=== PATIENT | female | born 1945 | race Caucasian/White ===

== ENCOUNTER 2017-11-26 06:27 | Inpatient (IN) | payer OTHER ==
[~2017-11-26] VITALS: Ht 165.1 cm; Wt 85.0 kg
[~2017-11-26 06:27] MED LIST: ALBUTEROL 3 ML3 ML INH; ATORVASTATIN CA20 M1 PO; ATORVASTATIN CA20 MG PO; CALCIUM 500 +1 EAC5 PO; HYDROCHLOROTHIA25 M1 PO; HYDRODIURIL 2525 MG PO; LOSARTAN POTASS25 M1 PO; METOPROLOL SUCC25 M1 PO; MOTRIN 400MG (400 MG PO; NORVASC 5MG TAB5 MG PO; NORVASC10 M1 PO; PERCOCET 325 MG1 TA2 PO; PREDNISONE 20MG20 MG PO; SPIRIVA RESPIMAT4 GM INH; SYMBICORT 16010.2 GM INH; SYMBICORT 80/4.1 PUF INH
--- NOTE | 2017-11-26 06:51 | ED GI/GU/ABDOMINAL COMPLAINT ---
History of Present Illness General Chief Complaint: Abdominal Pain/Flank Pain Stated Complaint: FLANK PAIN ? KIDNEY PAIN PER PT Source: patient, family Exam Limitations: no limitations Vital Signs & Intake/Output Vital Signs & Intake/Output Vital Signs Date Time Temp Pulse Resp B/P B/P Pulse O2 O2 Flow FiO2 Mean Ox Delivery Rate 11/26 1054 101.4 100 20 114/52 96 Room Air 11/26 1044 101.4 11/26 1037 101.4 18 96 Room Air 2.0L 11/26 1006 102.7 120 16 199/89 89 Room Air 11/26 0950 102.7 / 0849 98.5 86 20 167/72 95 Room Air 11/26 0642 98.6 82 18 136/66 95 Room Air Allergies Coded Allergies: milk (VOMIT 11/26/17) orange ("FACE AND MOUTH LOOK LIKE I HAVE THIRD DEGREE BENNETT" PER PT 05/04/17) Reconcile Medications Amlodipine Besylate (Norvasc) 10 MG TABLET 1 TAB PO DAILY BP (Reported) Atorvastatin Calcium 20 MG TABLET 1 TAB PO DAILY CHOLESTEROL (Reported) Budesonide/Formoterol Fumarate (Symbicort 160-4.5 Mcg Inhaler) 160 MCG-4.5 MCG/ ACTUATION HFA.AER.AD 2 PUF INH BID COPD (Reported) Calcium Carbonate/Vitamin D3 (Calcium 500 + D Tablet) (Unknown Strength) TABLET (Unknown Dose) PO DAILY SUPPLEMENT (Reported) Hydrochlorothiazide (Unknown Strength) TABLET (Unknown Dose) UNKNOWN ( Reported) Losartan Potassium 25 MG TABLET 1 TAB PO DAILY BP (Reported) Metoprolol Succinate 25 MG TAB 0.5 TAB PO DAILY HEART/BP (Reported) Tiotropium [place] (Spiriva Respimat) 2.5 MCG/ACTUATION MIST.INHAL 2 PUFF INH DAILY COPD (Reported) Triage Note: PT FROM HOME C/O RIGHT BACK/FLANK PAIN THAT BEGAN YESTERDAY AROUND 1600. PT STATES "I THINK SOMETHIGN IS WRONG WITH MY KIDNEY". PT STATES "URGE TO PEE A LOT" PT DENIES BURNING UPON URINATION. "PRESSURE" ON BLADDER. PT STATES HX OF UTI. PT STATES "THEY SAY I HAVE A KIDNEY STONE TOO I GUESS" PT STATES N/V X1. VSS. Triage Nurses Notes Reviewed? yes ? n Is pt currently ? No Onset: Gradual Duration: day(s): Timing: recent history Quality/Severity: cramping, sharpness, throbbing Location: right flank, right lower quadrant Radiation: RLQ Activities at Onset: none Prior Abdominal Problems: similar symptoms Modifying Factors: Worsens With: palpation. Associated Symptoms: abdominal pain, nausea/vomiting HPI: 72 yo woman h/o copd, h/o kidney stone presents with right flank and right lower quadrant abdominal pain since yesterday afternoon. "I fell the pain wrap around from the back to the front." Mild nausea previously, but now resolved. She shares that she is having difficulty urinating. Per , "She had something like this before... it was really painful, and she toughed it out at home, and then her symptoms got better." She notes no chest pain, shortness of breath, diarrhea, chills. (Lou MIDDLETON,Kale Carlson) Past History Travel History Traveled to [place] past 21 day No Medical History Any Pertinent Medical History? see below for history Neurological: NONE EENT: NONE Cardiovascular: hypertension Respiratory: COPD Gastrointestinal: NONE Hepatic: NONE Renal: NONE Musculoskeletal: NONE Psychiatric: NONE Endocrine: NONE Blood Disorders: NONE Cancer(s): NONE AIR TRAFFIC CONTROL OPERATOR/Reproductive: NONE Other Medical Hx: Rheumatic fever History of MRSA: No History of VRE: No History of CDIFF: No Surgical History Surgical History: cholecystectomy, tubal ligation Psychosocial History Who do you live with Significant Other What is your primary language Macedonian Tobacco Use: Quit >30 days ago Family History Family History, If Any: MOTHER Hx Contributory? No (Lou MIDDLETON,Kale Carlson) Review of Systems Review of Systems Constitutional: Reports: no symptoms. EENTM: Reports: no symptoms. Respiratory: Reports: no symptoms. Cardiovascular: Reports: no symptoms. GI: Reports: no symptoms. Genitourinary: Reports: no symptoms. Musculoskeletal: Reports: no symptoms. Skin: Reports: no symptoms. Neurological/Psychological: Reports: no symptoms. Hematologic/Endocrine: Reports: no symptoms. Immunologic/Allergic: Reports: no symptoms. All Other Systems: Reviewed and Negative (Lou MIDDLETON,Kale Carlson) Physical Exam Physical Exam General Appearance: well developed/nourished, mild distress Head: atraumatic, normal appearance Eyes: Bilateral: normal appearance. Ears, Nose, Throat, Mouth: hearing grossly normal, moist mucous membrane Neck: normal inspection, supple, full range of motion Respiratory: normal breath sounds, chest non-tender, no respiratory distress, quiet respiration, lungs clear Cardiovascular: regular rate/rhythm Gastrointestinal: normal bowel sounds, soft, mild rlq tenderness to palpation. Back: normal inspection, normal range of motion Extremities: normal range of motion Neurologic/Psych: no motor/sensory deficits, awake, alert, oriented x 3 Skin: intact, normal color, warm/dry Core Measures ACS in differential dx? No Sepsis Present: No Sepsis Focused Exam Completed? No (Lou MIDDLETON,Kale Carlson) Progress Differential Diagnosis: appendicitis, kidney stone, ovarian cyst, UTI/pyelo Plan of Care: Orders Procedure Date/time Status Regular Diet 11/27 L Active LACTIC ACID 11/26 1253 Active Patient Data 11/26 1053 Active OXYGEN SETUP (GEN) 11/26 1036 Active Saline Lock 11/26 1036 Active Admit to inpatient 11/26 1036 Active Vital Signs 11/26 1036 Active Activity/Ambulation 11/26 1036 Active Code Status 11/26 1036 Active EKG 11/26 1025 Active LACTIC ACID 11/26 0953 Complete BLOOD CULTURE 11/26 0942 Active Add-on Test (ER Only) 11/26 0857 Active LIPASE 11/26 0653 Complete HEPATIC FUNCTION PANEL 11/26 0653 Complete CBC WITHOUT DIFFERENTIAL 11/26 0653 Complete BASIC METABOLIC PANEL 11/26 0653 Complete AMYLASE 11/26 0653 Complete URINALYSIS 11/26 0638 Complete Laboratory Tests 11/26/17 1025: Lactic Acid 1.8 11/26/17 0710: Anion Gap 11, Estimated GFR 40 L, BUN/Creatinine Ratio 16.2, Glucose 124 H, Calcium 9.2, Total Bilirubin 1.1, Direct Bilirubin 0.3, AST 21, ALT 26, Alkaline Phosphatase 80, Total Protein 7.0, Albumin 3.9, Amylase 34, Lipase 73, CBC w Diff NO MAN DIFF REQ, RBC 4.99, MCV 80.0 L, MCH 26.2 L, MCHC 32.7 L, RDW 15.1 H, MPV 7.8, Gran % 89.0 H, Lymphocytes % 5.0 L, Monocytes % 5.7, Eosinophils % 0.2, Basophils % 0.1, Absolute Granulocytes 13.3 H, Absolute Lymphocytes 0.7 L, Absolute Monocytes 0.8 H, Absolute Eosinophils 0, Absolute Basophils 0 05/06/18 0643: Urine Color YEL, Urine Clarity HAZY H, Urine pH 6.0, Ur Specific [place] >= 1.030, Urine Protein TRACE H, Urine Ketones NEG, Urine Nitrite NEG, Urine Bilirubin NEG, Urine Urobilinogen 0.2, Ur Leukocyte Esterase MOD H, Ur Microscopic SEDIMENT EXAMINED, Urine RBC 1-3, Urine WBC 25-50 H, Ur Epithelial Cells FEW, Urine Bacteria FEW H, Urine Mucus FEW, Urine Hemoglobin TRACE-INTACT , Urine Glucose NEG Microbiology 11/26 1050 BLOOD: Blood Culture - RECD 11/26 1025 BLOOD: Blood Culture - RECD Diagnostic Imaging: Viewed by Me: CT Scan. Discussed w/RAD: CT Scan. Initial ED EKG: none Hand-Off Endorsed To: Herminio Torres MD Endorsed Time: 0700 Pending: CT, labs, other (clinical response) (Kale Blake MD) Radiology Impression: Right hydronephrosis and hydroureter with prominent perinephric stranding secondary to a distal right ureteral calculus measuring 4 x 5 mm. Initial ED EKG: normal axis, normal intervals, normal p-waves, normal QRS complex, rhythm (sinus tachycardia), no ST T wave changes Prior EKG: unchanged Rhythm Strip: sinus tachycardia Comments: Continues with pain. Morphine ordered. Nursing reports fever. IV tylenol ordered. Patient became confused, delirious. Likely combination of fever and morphine. (Herminio Torres MD) Departure Departure Disposition: STILL A PATIENT Condition: Stable Referrals: Lorie Melo MD (PCP/Family) Departure Forms: Customer Survey General Discharge Information (Kale Blkae MD) Departure Time of Disposition: 1036 Clinical Impression Primary Impression: Pyelonephritis Secondary Impressions: Abdominal pain, Delirium due to multiple etiologies, Fever, Hydronephrosis, Leukocytosis, Renal colic Admission Note Spoke With: Dinorah Chavez MD Documentation of Exam: Documentation of any treatments & extenuating circumstances including Concerns Regarding Discharge (functional status, medication knowledge or non-compliance, living conditions, etc.) that warrant an admission rather than observation: Urology evaluation IV antibiotics follow cultures frequent neuro checks IV analgesia IV antiemetics medication adjustment continuing care discharge planning. (Herminio Torres MD) Critical Care Note Critical Care Note Critical Care Time: 30-74 min (40) (Brian MIDDLETONHerminio)
[2017-11-26 07:47] LABS: ABSOLUTE BASOPHIL COUNT 0 /CUMM (0.0-0.2); ABSOLUTE EOSINOPHIL COUNT 0 /CUMM (0.0-0.7); ABSOLUTE GRANULOCYTE CT 13.3 /CUMM (1.4-6.5); ABSOLUTE LYMPH COUNT 0.7 /CUMM (1.2-3.4); ABSOLUTE MONOCYTE COUNT 0.8 /CUMM (0.10-0.60); BASOPHIL % 0.1 % (0.0-2.0); EOSINOPHIL % 0.2 % (0-5); HEMATOCRIT 39.9 % (37-47); MEAN CORPUSCULAR HGB 26.2 PG (27.0-31.0); MEAN CORPUSCULAR HGB CONC 32.7 G/DL (33.0-37.0); MEAN PLATELET VOLUME 7.8 FL (7.4-10.4); PLATELET COUNT 453 /CUMM (130-400); RBC DISTRIBUTION WIDTH 15.1 % (11.5-14.5); RED BLOOD CELL CT 4.99 /CUMM (4.20-5.40); WHITE BLOOD CELL COUNT 14.9 /CUMM (4.8-10.8)
--- NOTE | 2017-11-26 09:42 | CT SCAN REPORT ---
EXAMINATION: CT ABDOMEN AND PELVIS WITHOUT CONTRAST CLINICAL INFORMATION: Right flank pain. COMPARISON: CT chest 05/15/2017, CT abdomen and pelvis 05/31/2015. TECHNIQUE: Multidetector volumetric imaging was performed from the superior aspect of the liver through the pubic symphysis. Sagittal and coronal reformatted images were obtained on the technologist's workstation. No oral or intravenous contrast. DLP: 574 mGy-cm FINDINGS: LUNG BASES: The visualized lung bases are unremarkable. LIVER, GALLBLADDER, AND BILIARY TREE: The liver is normal in size, shape, and attenuation. No focal hepatic lesion or biliary ductal dilatation is present. There appears to have been prior cholecystectomy. Common duct unremarkable. There is gas bubble at medial duodenal wall near the distal common duct which may be related to papillotomy or small diverticulum. PANCREAS: Unremarkable. Small fatty deposit or lipoma between duodenum and pancreatic head stable. SPLEEN: Unremarkable. ADRENAL GLANDS: Unremarkable. KIDNEYS AND URETERS: There is right hydronephrosis and right hydroureter secondary to a distal 4 x 5 mm right ureteral calculus measuring 433HU attenuation. There is prominent right perinephric stranding. Left urinary tract unremarkable. BLADDER: Unremarkable. GASTROINTESTINAL TRACT: No bowel obstruction or focal bowel inflammatory changes. Unremarkable appendix. No ascites or fluid collection. Small hiatal hernia. ABDOMINAL WALL: No significant hernia is appreciated. LYMPH NODES: No lymphadenopathy. VASCULAR: Unremarkable. PELVIC VISCERA: Unremarkable. OSSEOUS STRUCTURES: Unremarkable. IMPRESSION: Right hydronephrosis and hydroureter with prominent perinephric stranding secondary to a distal right ureteral calculus measuring 4 x 5 mm.
--- NOTE | 2017-11-26 12:14 | History & Physical ---
Juanjose Li 11/26/17 1143: General Information and HPI MD Statement: I have seen and personally examined MATTY MOREJON and documented this H&P. The patient is a 72 year old F who presented with a patient stated chief complaint of right flank pain, nausea and vomiting. Source of Information: patient Exam Limitations: no limitations History of Present Illness: 72-year-old woman past medical history of hypertension, hyperlipidemia, history of nephrolithiasis more than 20 years ago with spontaneous resolution and no intervention, recent episode of nephrolithiasis in August 2017 again with self resolution following increased hydration presents to the ED with complaints of throbbing right back pain that started on 11/25/2017 at around 4 PM. She described the pain as stabbing pain, radiating to her groin, with no alleviating or aggravating factors. She took 2 ibuprofen last night with no improvement in her symptoms. She denied any dysuria, frequency or urgency but does admit to decreased urinary output since yesterday morning. Positive hesitancy. She admits to risers, nausea and vomiting. She did not seek any medical attention yesterday, but was unable to sleep overnight due to pain and nausea, which prompted her to come to the ED this morning. She had one episode of vomiting, no blood in the vomitus. Reports good appetite and good fluid intake prior to this episode. She has a long-standing history of lower back pain, for which she takes 400 mg of ibuprofen at night every 2-3 days. She reports that she was taken off hydrochlorothiazide, because she has had worsening of her kidney function recently. She denies noticing any blood in stools or urine. Former smoker, no alcohol use, no recreational drug use. Lives at home, with her boyfriend. Works as a cook cashier food prep. Other systems reviewed and negative, exceptions above. Allergies/Medications Allergies: Coded Allergies: milk (VOMIT 11/26/17) orange ("FACE AND MOUTH LOOK LIKE I HAVE THIRD DEGREE BENNETT" PER PT 05/04/17) Home Med list Amlodipine Besylate (Norvasc) 10 MG TABLET 1 TAB PO DAILY BP (Reported) Atorvastatin Calcium 20 MG TABLET 1 TAB PO DAILY CHOLESTEROL (Reported) Budesonide/Formoterol Fumarate (Symbicort 160-4.5 Mcg Inhaler) 160 MCG-4.5 MCG/ ACTUATION HFA.AER.AD 2 PUF INH BID COPD (Reported) Calcium Carbonate/Vitamin D3 (Calcium 500 + D Tablet) (Unknown Strength) TABLET (Unknown Dose) PO DAILY SUPPLEMENT (Reported) Hydrochlorothiazide (Unknown Strength) TABLET (Unknown Dose) UNKNOWN ( Reported) Losartan Potassium 25 MG TABLET 1 TAB PO DAILY BP (Reported) Metoprolol Succinate 25 MG TAB 0.5 TAB PO DAILY HEART/BP (Reported) Tiotropium [place] (Spiriva Respimat) 2.5 MCG/ACTUATION MIST.INHAL 2 PUFF INH DAILY COPD (Reported) Past History Travel History Traveled to [place] past 21 day No Medical History Neurological: NONE EENT: NONE Cardiovascular: hypertension Respiratory: COPD Gastrointestinal: NONE Hepatic: NONE Renal: NONE Musculoskeletal: NONE Psychiatric: NONE Endocrine: NONE Blood Disorders: NONE Cancer(s): NONE PARK WORKER/Reproductive: NONE Other Medical Hx: Rheumatic fever History of MRSA: No History of VRE: No History of CDIFF: No Surgical History Surgical History: cholecystectomy, tubal ligation Past Family/Social History Family History Relations & Conditions if any MOTHER Review of Systems Review of Systems Constitutional: Reports: see HPI. Exam & Diagnostic Data Last 24 Hrs of Vital Signs/I&O Vital Signs Date Time Temp Pulse Resp B/P B/P Pulse O2 O2 Flow FiO2 Mean Ox Delivery Rate 11/26 1054 101.4 100 20 114/52 96 Room Air 11/26 1044 101.4 11/26 1037 101.4 18 96 Room Air 2.0L 11/26 1006 102.7 120 16 199/89 89 Room Air 11/26 0950 102.7 11/26 0849 98.5 86 20 167/72 95 Room Air 11/26 0642 98.6 82 18 136/66 95 Room Air Intake & Output 11/26 1600 11/26 0800 05 0000 Intake Total 2000 Output Total Balance 2000 Intake, IV 2000 Patient 189 lb Weight Weight Reported by Patient Measurement Method Physical Exam General Appearance Alert, Oriented X3, Cooperative, Mild Distress Skin No Rashes, No Breakdown HEENT Atraumatic, PERRLA, EOMI, Mucous Membr. moist/pink Cardiovascular Regular Rate, Normal S1, Normal S2 Lungs Clear to Auscultation, Normal Air Movement Abdomen Normal Bowel Sounds, Soft, No Tenderness, right CVA tenderness. Extremities No Clubbing, No Cyanosis, trace edema bilaterally. Vascular Normal Pulses, Pulses Symmetrical Last 24 Hrs of Labs/Reji: Laboratory Tests 11/26/17 1025: Lactic Acid 1.8 11/26/17 0710: Anion Gap 11, Estimated GFR 40 L, BUN/Creatinine Ratio 16.2, Glucose 124 H, Calcium 9.2, Total Bilirubin 1.1, Direct Bilirubin 0.3, AST 21, ALT 26, Alkaline Phosphatase 80, Total Protein 7.0, Albumin 3.9, Amylase 34, Lipase 73, CBC w Diff NO MAN DIFF REQ, RBC 4.99, MCV 80.0 L, MCH 26.2 L, MCHC 32.7 L, RDW 15.1 H, MPV 7.8, Gran % 89.0 H, Lymphocytes % 5.0 L, Monocytes % 5.7, Eosinophils % 0.2, Basophils % 0.1, Absolute Granulocytes 13.3 H, Absolute Lymphocytes 0.7 L, Absolute Monocytes 0.8 H, Absolute Eosinophils 0, Absolute Basophils 0 11/26/17 0643: Urine Color YEL, Urine Clarity HAZY H, Urine pH 6.0, Ur Specific [place] >= 1.030, Urine Protein TRACE H, Urine Ketones NEG, Urine Nitrite NEG, Urine Bilirubin NEG, Urine Urobilinogen 0.2, Ur Leukocyte Esterase MOD H, Ur Microscopic SEDIMENT EXAMINED, Urine RBC 1-3, Urine WBC 25-50 H, Ur Epithelial Cells FEW, Urine Bacteria FEW H, Urine Mucus FEW, Urine Hemoglobin TRACE-INTACT , Urine Glucose NEG Microbiology 11/26 1138 URINE ROUT: Urine Culture - ORD 11/26 1050 BLOOD: Blood Culture - RECD 11/26 1025 BLOOD: Blood Culture - RECD Diagnostic Data EKG Results Sinus tachycardia, 104. Other Results CT abdomen pelvis. IMPRESSION: Right hydronephrosis and hydroureter with prominent perinephric stranding secondary to a distal right ureteral calculus measuring 4 x 5 mm. Assessment/Plan Assessment: 72-year-old woman with history of hypertension, hyperlipidemia, moderate to severe COPD presented with classic pyelonephritis triad of flank pain, nausea/ vomiting and fevers. MAXIMUM TEMPERATURE. 102.7. Right CVA tenderness on exam. WBC 14.9 with left shift. BUN/creatinine 21/1.3. Recent creatinine 10/13/2017-0.9. Urinalysis revealing of moderate leukocyte esterase, WBCs and trace proteinuria. CT abdomen pelvis-Right hydronephrosis and hydroureter with prominent perinephric stranding secondary to a distal right ureteral calculus measuring 4 x 5 mm. 1. Acute pyelonephritis. Blood cultures. Please not on urine cultures. IV fluid hydration. IV ceftriaxone. Anti-emetics when necessary. Optimal pain control with Tylenol and Vicodin for breakthrough pain. 2. Right hydronephrosis secondary to right ureteral calculus. IV fluid hydration, strain all urine if possible. Urology evaluation for stent placement. Nephrolithiasis prevention. Patient's hydrochlorothiazide was stopped recently in view of her worsening kidney function. May consider restarting to prevent further episodes of nephrolithiasis, following SVETLANA resolution. *Patient has history of osteopenia from her DEXA scan in 2016. Her medications show that she is taking 1500 mg of calcium daily. This may be superfluous, especially in the setting of 2 episodes of kidney stones in last 3 months. She does admit to inadequate dietary calcium intake, and despite that her maximum calcium dose should not exceed 1000 mg per day (divided doses). Recommend follow-up DEXA scan as an outpatient. Restart calcium at reduced dose upon discharge. Vitamin D 800 international units upon discharge. 3. Acute kidney injury. Likely postrenal. Monitor daily function following IV hydration and possible stone passage. Await urology evaluation. 4. Hypertension. Continue amlodipine, hold losartan. 5. COPD. Stable. TRC. Continue Symbicort and LAMA. 5. Continue atorvastatin. DNR/DNI. Heart healthy diet. Heparin for DVT prophylaxis. As Ranked By This Provider Problem List: 1. UTI (urinary tract infection) Core Measures/Misc (04/09) Acute Coronary Syndrome ACS Diagnosis: No Congestive Heart Failure Congestive Heart Failure Diagnosis No Cerebrovascular Accident CVA/TIA Diagnosis: No VTE (View Protocol) VTE Risk Factors No risk factors No Mechanical VTE Prophylaxis d/t N/A MechProphylax Ordered No VTE Pharm Prophylaxis d/t NA PharmProphylax ordered Sepsis (View protocol) Sepsis Present: No Dinorah Chavez 11/26/17 1255: Attending MD Review Statement Attending Statement Attending MD Statement: examined this patient, discuss w/resident/PA/FUSE MAKER, agreed w/resident/PA/FUSE MAKER, discussed with family, reviewed EMR data (avail), discussed with nursing, discussed with case mgmt, reviewed images, amended to note
--- NOTE | 2017-11-26 12:52 | Cons- Urology ---
General Information and HPI Consulting Request Date of Consult: 11/26/17 Requested By: Scott MIDDLETON,Dinorah Reason for Consult: right obstructing ureter stone with pyelonephritis Source of Information: patient, old records History of Present Illness: Pt admitted with right renal obstruction due to stone in ureter:additionally, sepsis. Pt seen and examined and notified of significant risks with obstruction +sepsis: pt wishes to proceed with plan. Allergies/Medications Allergies: Coded Allergies: milk (VOMIT 11/26/17) orange ("FACE AND MOUTH LOOK LIKE I HAVE THIRD DEGREE BENNETT" PER PT 05/04/17) Home Med List: Amlodipine Besylate (Norvasc) 10 MG TABLET 1 TAB PO DAILY BP (Reported) Atorvastatin Calcium 20 MG TABLET 1 TAB PO DAILY CHOLESTEROL (Reported) Budesonide/Formoterol Fumarate (Symbicort 160-4.5 Mcg Inhaler) 160 MCG-4.5 MCG/ ACTUATION HFA.AER.AD 2 PUF INH BID COPD (Reported) Calcium Carbonate/Vitamin D3 (Calcium 500 + D Tablet) (Unknown Strength) TABLET (Unknown Dose) PO DAILY SUPPLEMENT (Reported) Ciprofloxacin HCl (Cipro) 500 MG TABLET 500 MG PO BID Pyelonephritis . Hydrochlorothiazide (Unknown Strength) TABLET 25 MG PO DAILY BP (Reported) Hydrocodone/Acetaminophen (Hydrocodon-Acetaminophen 5-325) 5 MG-325 MG TABLET 1 TAB PO Q6P PRN PAIN 5-10 ... Losartan Potassium 25 MG TABLET 1 TAB PO DAILY BP (Reported) Metoprolol Succinate 25 MG TAB 0.5 TAB PO DAILY HEART/BP (Reported) Tiotropium [place] (Spiriva Respimat) 2.5 MCG/ACTUATION MIST.INHAL 2 PUFF INH DAILY COPD (Reported) Current Medications: Current Medications Sig/Logan Start time Last Medication Dose Route Stop Time Status Admin Acetaminophen 1,000 MG Q8 11/26 1400 AC IV Acetaminophen 0 .STK-MED ONE 11/26 0955 DC IV Acetaminophen 1,000 MG ONCE ONE 11/26 0945 DC 11/26 IV 11/26 0946 0950 Amlodipine Besylate 10 MG DAILY 11/27 0900 AC PO Atorvastatin Calcium 20 MG 1700 11/26 1700 AC PO Budesonide/ 2 PUF BID 11/26 1141 AC Formoterol Fumarate INH Ceftriaxone Sodium 1,000 MG Q24H 11/27 1100 AC IV Ceftriaxone Sodium 0 .STK-MED ONE 11/26 0939 DC .ROUTE Ceftriaxone Sodium 1,000 MG ONCE ONE 11/26 0900 DC 05/06 IV 11/26 0901 1053 Heparin Sodium 5,000 UNIT Q8 11/26 1400 AC (Porcine) SC Hydrocodone Bitart/ 1 TAB Q6P PRN 11/26 1130 AC Acetaminophen PO Ketorolac 0 .STK-MED ONE 11/26 0725 DC Tromethamine .ROUTE Ketorolac 30 MG ONCE ONE 11/26 0700 DC 05/ Tromethamine IV 11/26 0701 0758 Metoprolol Succinate 12.5 MG DAILY 11/27 0900 AC PO Morphine Sulfate 0 .STK-MED ONE 11/26 0938 DC .ROUTE Morphine Sulfate 2 MG ONCE ONE 11/26 0915 DC / IV 11/26 0916 0942 Ondansetron HCl 0 .STK-MED ONE 11/26 0939 DC .ROUTE Ondansetron HCl 4 MG ONCE ONE 11/26 0930 DC / IV 11/26 0931 0942 Sodium Chloride 1,000 ML Q13H 11/26 1130 AC IV Sodium Chloride 1,000 ML BOLUS ONE 11/26 0915 DC 05/ IV / 1014 0942 Sodium Chloride 1,000 ML BOLUS ONE 11/26 0715 DC 05/ IV 11/26 0814 0758 Tiotropium [place] 1 PUF DAILY 11/26 1141 AC INH Past History Medical History Neurological: NONE EENT: NONE Cardiovascular: hypertension Respiratory: COPD Gastrointestinal: NONE Hepatic: NONE Renal: NONE Musculoskeletal: NONE Psychiatric: NONE Endocrine: NONE Blood Disorders: NONE Cancer(s): NONE MARKET ANALYST/Reproductive: NONE Other Medical Hx: Rheumatic fever Surgical History Pertinent Surgical History: cholecystectomy, tubal ligation Family History Relations & Conditions If Any: MOTHER Review of Systems Review of Systems Constitutional: Reports: see HPI. EENTM: Denies: no symptoms. Cardiovascular: Denies: no symptoms. Respiratory: Denies: no symptoms. GI: Reports: abdominal pain, bloating. Genitourinary: Reports: frequency. Musculoskeletal: Denies: no symptoms. Exam & Diagnostic Data Vital Signs and I&O Vital Signs Date Time Temp Pulse Resp B/P B/P Pulse O2 O2 Flow FiO2 Mean Ox Delivery Rate 11/26 1218 100.2 11/26 1054 101.4 100 20 114/52 96 Room Air 05/06 1044 101.4 11/26 1037 101.4 18 96 Room Air 2.0L 11/26 1006 102.7 120 16 199/89 89 Room Air 11/26 0950 102.7 11/26 0849 98.5 86 20 167/72 95 Room Air 11/26 0642 98.6 82 18 136/66 95 Room Air Intake & Output 11/26 0800 11/26 0000 11/25 0811/25 0000 Intake Total 2000 Output Total Balance 2000 Intake, IV 2000 Patient 189 lb Weight Weight Reported by Patient Measurement Method Physical Exam General Appearance: well developed/nourished, obese Head: atraumatic Eyes: Bilateral: normal appearance. Respiratory: normal breath sounds Cardiovascular: regular rate/rhythm Gastrointestinal: normal bowel sounds, soft, non-tender Back: CVA tenderness (R) Extremities: normal inspection Reproductive: Normal female genitalia Last 24 Hours of Labs: Laboratory Tests 11/26 11/26 1025 0710 Chemistry Sodium (137 - 145 mmol/L) 136 L Potassium (3.5 - 5.1 mmol/L) 4.8 Chloride (98 - 107 mmol/L) 100 Carbon Dioxide (22 - 30 mmol/L) 25 Anion Gap (5 - 16) 11 BUN (7 - 17 mg/dL) 21 H Creatinine (0.5 - 1.0 mg/dL) 1.3 H Estimated GFR (>60 ml/min) 40 L BUN/Creatinine Ratio (7 - 25 %) 16.2 Glucose (65 - 99 mg/dL) 124 H Lactic Acid (0.7 - 2.1 mmol/L) 1.8 Calcium (8.4 - 10.2 mg/dL) 9.2 Total Bilirubin (0.2 - 1.3 mg/dL) 1.1 Direct Bilirubin (< 0.4 mg/dL) 0.3 AST (14 - 36 U/L) 21 ALT (9 - 52 U/L) 26 Alkaline Phosphatase (<127 U/L) 80 Total Protein (6.3 - 8.2 g/dL) 7.0 Albumin (3.5 - 5.0 g/dL) 3.9 Amylase (30 - 110 U/L) 34 Lipase (23 - 300 U/L) 73 Hematology CBC w Diff NO MAN DIFF REQ WBC (4.8 - 10.8 /CUMM) 14.9 H RBC (4.20 - 5.40 /CUMM) 4.99 Hgb (12.0 - 16.0 G/DL) 13.1 Hct (37 - 47 %) 39.9 MCV (81.0 - 99.0 FL) 80.0 L MCH (27.0 - 31.0 PG) 26.2 L MCHC (33.0 - 37.0 G/DL) 32.7 L RDW (11.5 - 14.5 %) 15.1 H Plt Count (130 - 400 /CUMM) 453 H MPV (7.4 - 10.4 FL) 7.8 Gran % (42.2 - 75.2 %) 89.0 H Lymphocytes % (20.5 - 51.1 %) 5.0 L Monocytes % (1.7 - 9.3 %) 5.7 Eosinophils % (0 - 5 %) 0.2 Basophils % (0.0 - 2.0 %) 0.1 Absolute Granulocytes (1.4 - 6.5 /CUMM) 13.3 H Absolute Lymphocytes (1.2 - 3.4 /CUMM) 0.7 L Absolute Monocytes (0.10 - 0.60 /CUMM) 0.8 H Absolute Eosinophils (0.0 - 0.7 /CUMM) 0 Absolute Basophils (0.0 - 0.2 /CUMM) 0 05/06 0643 Urines Urine Color (YEL,AMB,STR) YEL Urine Clarity (CLEAR) HAZY H Urine pH (5.0 - 8.0) 6.0 Ur Specific [place] (1.001 - 1.035) >= 1.030 Urine Protein (NEG,<30 MG/DL) TRACE H Urine Ketones (NEG) NEG Urine Nitrite (NEG) NEG Urine Bilirubin (NEG) NEG Urine Urobilinogen (0.1 - 1.0 EU/dl) 0.2 Ur Leukocyte Esterase (NEG) MOD H Ur Microscopic SEDIMENT EXAMINED Urine RBC (0 - 5 /HPF) 1-3 Urine WBC (0 - 2 /HPF) 25-50 H Ur Epithelial Cells (NONE,FEW) FEW Urine Bacteria (NEG/NONE) FEW H Urine Mucus (FEW,NONE) FEW Urine Hemoglobin (NEG) TRACE-INTACT Urine Glucose (N MG/DL) NEG Imaging Results: PATIENT: MATTY MOREJON PRESENT AGE: 72 PATIENT ACCOUNT NO: [id number] : 47 LOCATION: [facility] ORDERING PHYSICIAN: Kale Blake MD SERVICE DATE: 11/26/17 EXAM TYPE: CAT - CT ABD & PELVIS W/O IV CONTRAS EXAMINATION: CT ABDOMEN AND PELVIS WITHOUT CONTRAST CLINICAL INFORMATION: Right flank pain. COMPARISON: CT chest 05/15/2017, CT abdomen and pelvis 05/31/2015. TECHNIQUE: Multidetector volumetric imaging was performed from the superior aspect of the liver through the pubic symphysis. Sagittal and coronal reformatted images were obtained on the technologist's workstation. No oral or intravenous contrast. DLP: 574 mGy-cm FINDINGS: LUNG BASES: The visualized lung bases are unremarkable. LIVER, GALLBLADDER, AND BILIARY TREE: The liver is normal in size, shape, and attenuation. No focal hepatic lesion or biliary ductal dilatation is present. There appears to have been prior cholecystectomy. Common duct unremarkable. There is gas bubble at medial duodenal wall near the distal common duct which may be related to papillotomy or small diverticulum. PANCREAS: Unremarkable. Small fatty deposit or lipoma between duodenum and pancreatic head stable. SPLEEN: Unremarkable. ADRENAL GLANDS: Unremarkable. KIDNEYS AND URETERS: There is right hydronephrosis and right hydroureter secondary to a distal 4 x 5 mm right ureteral calculus measuring 433HU attenuation. There is prominent right perinephric stranding. Left urinary tract unremarkable. BLADDER: Unremarkable. GASTROINTESTINAL TRACT: No bowel obstruction or focal bowel inflammatory changes. Unremarkable appendix. No ascites or fluid collection. Small hiatal hernia. ABDOMINAL WALL: No significant hernia is appreciated. LYMPH NODES: No lymphadenopathy. VASCULAR: Unremarkable. PELVIC VISCERA: Unremarkable. OSSEOUS STRUCTURES: Unremarkable. IMPRESSION: Right hydronephrosis and hydroureter with prominent perinephric stranding secondary to a distal right ureteral calculus measuring 4 x 5 mm. Assessment/Plan Assessment/Plan obstructed kidney due to ureter stone and sepsis/stent now Copies To: Rahul Vargas MD Consult Acknowledgment - Thank you for your consult request. Attending MD Review Statement Attending Statement Attending MD Statement: examined this patient, discuss w/resident/PA/BUILDING ENERGY CONSULTANT Attending Assessment/Plan: pt needs stent now.
[2017-11-26 12:57] VITALS: BP 116/56
--- NOTE | 2017-11-26 15:47 | Operative Report ---
Operative/Inv Procedure Report Surgery Date: 11/26/17 Name of Procedure: cystoscopy: right stent insertion. Fluoroscopy Pre-Operative Diagnosis: right hydro. with sepsis. Post-Operative Diagnosis: same Estimated Blood Loss: scant Surgeon/Social Insurance Analyst: MD Sam, Rahul-urology Anesthesia: moderate sedation Implants: 6 x 22 stent Complications: none Condition: improved Operative/Procedure Note Note: The patient was taken to the operating room placed OR table in supine position. Timeout was performed, with the patient awake, in order to confirm anesthesia, and other pertinent perioperative information. After adequate anesthesia, and antibiotics, the patient was then placed lithotomy stirrups, draped and prepped in the usual surgical fashion. A 22 [place]ian cystoscope sheath with 30 angle lens was inserted into the urethra, subsequently into the bladder without difficulty. Upon thorough and systematic surveillance, the bladder was noted to be free of tumor, free of stone. Both ureteral orifices were in their orthotopic position with clear reflux from the left side, and no reflux on the right. The right orifice was intubated with an open-ended ureteral access catheter. Retrograde pyelogram was gently performed in order to confirm hydronephrosis. Additionally, the retrograde helps to better define the anatomy of the ureter, and kidney using fluoroscopy. The open -ended tiger tail stent was then removed. The right orifice was then intubated with a 0.035 Glidewire, which was advanced into the right ureter, and into the right upper pole of the kidney without difficulty. Over this Glidewire, a 6 x 22 Bard onlay double J stent was railroaded into the right ureter without difficulty. With the proximal coil in the right renal pelvis, and the distal coil in the bladder, the Glidewire was removed, and the stent remained in proper place. Large amount of purulent discharge was noted to drained from the right kidney, after placement of the stent on the right side. All sponge needle and instrument counts were correct at the end of the case. The bladder was then drained via the cystoscope, and then the scope removed without difficulty. The patient tolerated the procedure well was taken to recovery room in satisfactory condition. Findings: large amount of pus drained from right kidney after stent placement. Discharge Disposition: PACU CC: Rahul Vargas MD
[2017-11-26 16:00] VITALS: BP 130/58
--- NOTE | 2017-11-26 16:05 | RADIOLOGY REPORT ---
EXAMINATION: CR ABDOMEN/INTRAOPERATIVE FLUOROSCOPY CLINICAL INDICATION: Cystoscopy and right stent placement. COMPARISON: CT scan of the abdomen and pelvis dated 11/26/2017. TECHNIQUE/FINDINGS: Fluoroscopic equipment was dedicated to the operating room for the performance of an intraoperative procedure. Single spot film was acquired and is archived in PACS. Please refer to operative notes for procedural detail. FLUOROSCOPY TIME: 5.2 seconds. IMPRESSION: Administrative dictation for intraoperative fluoroscopy and image archiving in PACS. Please refer to operative notes for details.
[2017-11-26 22:04] VITALS: BP 106/70
[2017-11-27 05:55] VITALS: BP 118/58
--- NOTE | 2017-11-27 06:51 | PN- Housestaff ---
See Addendum Subjective Follow-up For: Pyelonephritis Subjective: No overnight events. Patient slept well except she started getting pain in her right side this morning. She also has a lot of pain when she urinates, urging to urinate, and some incontinence. She had no fevers, chills, sweats, chest pain, shortness of breath, nausea, vomiting, or diarrhea. Review of Systems Constitutional: Reports: no symptoms. EENTM: Reports: no symptoms. Cardiovascular: Reports: no symptoms. Respiratory: Reports: no symptoms. Gastrointestinal: Reports: no symptoms. Genitourinary: Reports: see HPI. Musculoskeletal: Reports: no symptoms. Skin: Reports: no symptoms. Neurological/Psychological: Reports: no symptoms. Hematologic/Endocrine: Reports: no symptoms. Immunologic/Allergic: Reports: no symptoms. Objective Last 24 Hrs of Vital Signs/I&O Vital Signs Date Time Temp Pulse Resp B/P B/P Pulse O2 O2 Flow FiO2 Mean Ox Delivery Rate 11/27 0555 98.1 72 20 118/58 91 11/26 2204 98.1 74 20 106/70 91 Room Air 11/26 1845 91 Room Air 11/26 1600 98.0 85 18 130/58 92 Room Air 11/26 1257 98.0 105 18 116/56 91 Room Air 11/26 1253 Nasal 2.0L Cannula 11/26 1218 100.2 11/26 1054 101.4 100 20 114/52 96 Room Air / 1044 101.4 / 1037 101.4 18 96 Room Air 2.0L 11/26 1006 102.7 120 16 199/89 89 Room Air 11/26 0950 102.7 11/26 0849 98.5 86 20 167/72 95 Room Air Intake & Output 11/27 0800 05/ 0000 05/06 1600 Intake Total 225 150 Output Total 50 150 Balance 175 0 Intake, IV 225 150 Number 0 Bowel Movements Output, Urine 50 150 Patient 85.049 kg 84.822 kg Weight Weight Bed scale Reported by Patient Measurement Method Physical Exam General Appearance: Alert, Oriented X3, Cooperative, No Acute Distress Cardiovascular: Regular Rate, Normal S1, Normal S2 Lungs: Clear to Auscultation Abdomen: Normal Bowel Sounds, Soft, Left CVA tenderness, tenderness to palpation on right side of abdomen Extremities: No Edema, Normal Pulses, No Tenderness/Swelling Current Medications: Current Medications Sig/Logan Start time Last Medication Dose Route Stop Time Status Admin Acetaminophen 1,000 MG Q8 11/26 1400 AC 11/27 IV 0555 Acetaminophen 0 .STK-MED ONE 11/26 0855 DC IV Acetaminophen 1,000 MG ONCE ONE 11/26 0945 DC 11/26 IV 11/26 0946 0950 Albuterol Sulfate 3 ML BID 11/26 2100 AC 05 INH 1845 Amlodipine Besylate 10 MG DAILY 11/27 0900 AC PO Atorvastatin Calcium 20 MG 1700 11/26 1700 AC 05/ PO 1651 Budesonide/ 2 PUF BID 11/26 1141 AC 05 Formoterol Fumarate INH 2118 Ceftriaxone Sodium 1,000 MG Q24H 11/27 1100 AC IV Ceftriaxone Sodium 0 .STK-MED ONE 11/26 0839 DC .ROUTE Ceftriaxone Sodium 1,000 MG ONCE ONE 11/26 0900 DC 11/26 IV 11/26 0901 1053 Fentanyl Citrate 100 MCG .STK-MED ONE 11/26 1500 DC IM 11/26 1501 Heparin Sodium 5,000 UNIT Q8 11/26 1400 AC 11/27 (Porcine) SC 0555 Hydrocodone Bitart/ 1 TAB Q6P PRN 11/26 1130 AC Acetaminophen PO Ketorolac 0 .STK-MED ONE 11/26 0725 DC Tromethamine .ROUTE Ketorolac 30 MG ONCE ONE 11/26 07 DC 11/26 Tromethamine IV 11/26 0701 0758 Metoprolol Succinate 12.5 MG DAILY 11/27 0900 AC PO Morphine Sulfate 0 .STK-MED ONE 11/26 0938 DC .ROUTE Morphine Sulfate 2 MG ONCE ONE 11/26 914 DC 11/26 IV 11/26 0916 0942 Ondansetron HCl 0 .STK-MED ONE 11/26 0839 DC .ROUTE Ondansetron HCl 4 MG ONCE ONE 11/26 0830 DC 11/26 IV 11/26 0931 0942 Phenazopyridine HCl 100 MG PC 11/27 0900 UNVr PO Sodium Chloride 1,000 ML Q13H 11/26 1130 DC 11/27 IV 0555 Sodium Chloride 1,000 ML BOLUS ONE 11/26 0815 DC 11/26 IV 11/26 1014 0942 Sodium Chloride 1,000 ML BOLUS ONE 11/26 714 DC 11/26 IV 11/26 0814 0758 Tiotropium [place] 1 PUF DAILY 11/26 1141 AC 11/26 INH 1651 Last 24 Hrs of Lab/Reji Results Last 24 Hrs of Labs/Mics: Laboratory Tests 11/26/17 1253: Lactic Acid Cancelled 11/26/17 1025: Lactic Acid 1.8 11/26/17 0710: Anion Gap 11, Estimated GFR 40 L, BUN/Creatinine Ratio 16.2, Glucose 124 H, Calcium 9.2, Total Bilirubin 1.1, Direct Bilirubin 0.3, AST 21, ALT 26, Alkaline Phosphatase 80, Total Protein 7.0, Albumin 3.9, Amylase 34, Lipase 73, CBC w Diff NO MAN DIFF REQ, RBC 4.99, MCV 80.0 L, MCH 26.2 L, MCHC 32.7 L, RDW 15.1 H, MPV 7.8, Gran % 89.0 H, Lymphocytes % 5.0 L, Monocytes % 5.7, Eosinophils % 0.2, Basophils % 0.1, Absolute Granulocytes 13.3 H, Absolute Lymphocytes 0.7 L, Absolute Monocytes 0.8 H, Absolute Eosinophils 0, Absolute Basophils 0 Microbiology 11/26 1138 URINE ROUT: Urine Culture - COLB 11/26 1050 BLOOD: Blood Culture - RECD 11/26 1025 BLOOD: Blood Culture - RECD Assessment/Plan Assessment: Ms. Sweeney is a 72-year-old woman with history of hypertension, hyperlipidemia, moderate to severe COPD presented with flank pain, nausea/ vomiting and fevers. Problem list: 1. Acute pyelonephritis secondary to obstructing right ureteral calculus status post stent placement #Acute pyelonephritis: Patient presented with right flank pain, nausea, vomiting , and fevers with imaging revealing obstructive stone. Urology evaluated and placed a stent on 11/25/17 and noticed a lot of pus. Patient was started on ceftriaxone and cultures were obtained. Overnight she has done well. -Follow cultures -Continue ceftriaxone -Appreciate urology recommendations -Hold nephrotoxins -Consider stopping daily calcium #Chronic medical problems: -Hold ABENA/ARB -Continue other home medications DVT prophylaxis with heparin Heart healthy diet DNR/DNI Problem List: 1. Pyelonephritis Pain Ratin Pain Location: no Pain Goal: Remain pain free Pain Plan: see a/p Tomorrow's Labs & Rationales: no
--- NOTE | 2017-11-27 07:41 | PN- Urology ---
Surgical Brief Attending Note Brief Attending Note: Overall comfortable overnight: vss afebrile: dc plan per med.
[2017-11-27 08:57] LABS: ABSOLUTE BASOPHIL COUNT 0 /CUMM (0.0-0.2); ABSOLUTE EOSINOPHIL COUNT 0.1 /CUMM (0.0-0.7); ABSOLUTE GRANULOCYTE CT 9.2 /CUMM (1.4-6.5); ABSOLUTE LYMPH COUNT 0.8 /CUMM (1.2-3.4); ABSOLUTE MONOCYTE COUNT 0.6 /CUMM (0.10-0.60); BASOPHIL % 0 % (0.0-2.0); GRANULOCYTE % 85.5 % (42.2-75.2); MEAN CORPUSCULAR HGB 26.7 PG (27.0-31.0); MEAN CORPUSCULAR HGB CONC 32.9 G/DL (33.0-37.0); MEAN CORPUSCULAR VOLUME 81.2 FL (81.0-99.0); MEAN PLATELET VOLUME 8.4 FL (7.4-10.4); PLATELET COUNT 277 /CUMM (130-400); RBC DISTRIBUTION WIDTH 15.3 % (11.5-14.5); RED BLOOD CELL CT 4.01 /CUMM (4.20-5.40); WHITE BLOOD CELL COUNT 10.7 /CUMM (4.8-10.8)
[2017-11-27 09:18] LABS: HEMATOCRIT 32.6 % (37-47)
[2017-11-27] MEDS ORDERED: CEFDINIR300 M1 PO (13:01)
[2017-11-27] MEDS ORDERED: PHENAZOPYRIDIN100 M3 PO (13:01)
[2017-11-27 14:18] VITALS: BP 100/52
[2017-11-27 23:08] VITALS: BP 109/50
[2017-11-28 06:51] VITALS: BP 111/62
--- NOTE | 2017-11-28 07:16 | PN- Housestaff ---
Lane Coronel 11/28/17 0715: Subjective Follow-up For: #Acute pyelonephritis Subjective: Patient reports dyspnea and R flank pain that radiates to abdomen. She denies nausea, vomiting, fever, chills or burning on urination Review of Systems Constitutional: Reports: see HPI. Objective Last 24 Hrs of Vital Signs/I&O Vital Signs Date Time Temp Pulse Resp B/P B/P Pulse O2 O2 Flow FiO2 Mean Ox Delivery Rate 11/28 830 95 Nasal 2.0L Cannula 11/29 823 68 111/62 11/28 0824 68 111/62 11/29 799 95 Nasal 2.0L Cannula 11/28 0651 98.1 68 20 111/62 97 Nasal 4.0L Cannula 11/27 2314 Nasal 4.0L Cannula 11/27 2308 98.5 83 20 109/50 95 Nasal 4.0L Cannula 11/27 2009 94 Nasal 4.0L Cannula 11/27 1600 Nasal 4.0L Cannula 11/27 1418 98.1 68 18 100/52 93 Intake & Output 11/28 1600 11/28 0800 11/28 0000 Intake Total 1140 1520 Output Total 600 100 Balance 540 1420 Intake, IV 900 800 Intake, Oral 240 720 Number 0 Bowel Movements Output, Urine 600 100 Physical Exam General Appearance: Alert, Oriented X3, Cooperative, on 4LNC HEENT: Atraumatic, PERRLA, EOMI, Mucous Membr. moist/pink Neck: Supple, No JVD, No thryomegaly Cardiovascular: Regular Rate, Normal S1, Normal S2 Lungs: Decreased breath sounds, fine basilar crackles Abdomen: Normal Bowel Sounds, Soft, No Tenderness Extremities: No Edema Current Medications: Current Medications Sig/Logan Start time Last Medication Dose Route Stop Time Status Admin Acetaminophen 1,000 MG Q8 / 1400 AC 11/28 IV 0549 Albuterol Sulfate 3 ML BID 11/26 2100 AC 11/28 INH 0831 Amlodipine Besylate 10 MG DAILY 11/27 0900 AC 05/ PO 0824 Atorvastatin Calcium 20 MG 1700 11/26 1700 AC 05 PO 1711 Budesonide/ 2 PUF BID 11/26 1141 AC 11/28 Formoterol Fumarate INH 0824 Ceftriaxone Sodium 1,000 MG Q24H 11/27 1100 DC 11/27 IV 1023 Ciprofloxacin 500 MG BID 11/28 1023 AC PO 12/02 1022 Docusate Sodium 100 MG DAILY NEEDED PRN 11/27 1115 AC 11/28 PO 0824 Heparin Sodium 5,000 UNIT Q8 11/26 1400 AC 11/28 (Porcine) SC 0547 Hydrocodone Bitart/ 1 TAB Q6P PRN 11/26 1130 AC 11/27 Acetaminophen PO 1918 Lactated Ringer's 1,000 ML Q10H 11/27 0700 DC 11/28 IV 0450 Metoprolol Succinate 12.5 MG DAILY 11/27 09 AC 11/28 PO 0824 Patient Medication 1 ED ONE ONE 11/27 1545 DC 11/27 Teaching ED 11/27 1546 1711 Phenazopyridine HCl 100 MG PC 11/27 0900 AC 11/28 PO 0824 Senna 187 MG AT BEDTIME 11/27 2100 AC 11/27 PO 2124 Tiotropium [place] 1 PUF DAILY 11/26 1141 AC 11/28 INH 0823 Last 24 Hrs of Lab/Reji Results Last 24 Hrs of Labs/Mics: Laboratory Tests 11/28/17 0735: Anion Gap 9, Estimated GFR > 60, BUN/Creatinine Ratio 18.9, CBC w Diff NO MAN DIFF REQ, RBC 3.65 L, MCV 80.4 L, MCH 26.6 L, MCHC 33.2, RDW 15.3 H, MPV 8.6 , Gran % 82.8 H, Lymphocytes % 9.0 L, Monocytes % 6.3, Eosinophils % 1.9, Basophils % 0, Absolute Granulocytes 7.3 H, Absolute Lymphocytes 0.8 L, Absolute Monocytes 0.6, Absolute Eosinophils 0.2, Absolute Basophils 0 11/27/172044: Troponin I < 0.01 Assessment/Plan Assessment: Ms. Sweeney is a 72-year-old woman with history of hypertension, hyperlipidemia, moderate to severe COPD presented with flank pain, nausea/ vomiting and fevers. Problem list: #Acute pyelonephritis secondary to obstructing right ureteral calculus status post stent placement #Anemia - may be dilutional due to fluid resuscitation Plan: TRC/nebs PRN, goal O2 > 88% Monitor H&H Obtain CXR for increased oxygen requirement to r/o fluid overload We will transition IV Ceftriaxone to PO Ciprofloxacin 500 mg BID We will consider resuming antihypertensives if BP allows now that renal function is at baseline Appreciate Urology recommendations, patient will follow up as outpatient Pain: Hydrocodone, Acetaminophen Diet: Regular DVT ppx: sc Heparin Code: DNR/I Dispo: Pending Problem List: 1. Pyelonephritis Pain Ratin Pain Location: R flank Pain Goal: Pain 4 or less Pain Plan: Hydrocodone, Acetaminophen Tomorrow's Labs & Rationales: none Deborah Jamison MD 11/28/17 1115: Attending MD Review Statement Attending Statement Attending MD Statement: examined this patient, discuss w/resident/PA/MEAT COUNTER CLERK, agreed w/resident/PA/MEAT COUNTER CLERK, reviewed EMR data (avail), discussed with nursing, discussed with case mgmt, reviewed images, amended to note Attending Assessment/Plan: Patient seen and examined, she is getting short of breath and requiring oxygen. She is complaining of feeling short of breath and some chest tightness. EKG obatined shows NSR, with no acute ST T changes and trops neg last night. Still has right flank pain. Vital Signs Date Time Temp Pulse Resp B/P B/P Pulse O2 O2 Flow FiO2 Mean Ox Delivery Rate 11/28 0831 95 Nasal 2.0L Cannula 11/28 0824 68 111/11/28 0824 68 111/62 11/28 0800 95 Nasal 2.0L Cannula 11/28 0651 98.1 68 20 111/62 97 Nasal 4.0L Cannula 11/27 2314 Nasal 4.0L Cannula 11/27 2308 98.5 83 20 109/50 95 Nasal 4.0L Cannula 11/27 2009 94 Nasal 4.0L Cannula 11/27 1600 Nasal 4.0L Cannula 11/27 1418 98.1 68 18 100/52 93 on exam; aox3, nad. cv; s1,s2, rrr resp; mild scattered wheeze, but overall decreased bs. abd; soft, nt, bs+ ext: no edema Laboratory Tests 11/28 11/27 0735 5 Chemistry Sodium (137 - 145 mmol/L) 138 Potassium (3.5 - 5.1 mmol/L) 4.2 Chloride (98 - 107 mmol/L) 104 Carbon Dioxide (22 - 30 mmol/L) 25 Anion Gap (5 - 16) 9 BUN (7 - 17 mg/dL) 17 Creatinine (0.5 - 1.0 mg/dL) 0.9 Estimated GFR (>60 ml/min) > 60 BUN/Creatinine Ratio (7 - 25 %) 18.9 Troponin I (< 0.11 ng/ml) < 0.01 Hematology CBC w Diff NO MAN DIFF REQ WBC (4.8 - 10.8 /CUMM) 8.8 RBC (4.20 - 5.40 /CUMM) 3.65 L Hgb (12.0 - 16.0 G/DL) 9.7 L Hct (37 - 47 %) 29.4 L MCV (81.0 - 99.0 FL) 80.4 L MCH (27.0 - 31.0 PG) 26.6 L MCHC (33.0 - 37.0 G/DL) 33.2 RDW (11.5 - 14.5 %) 15.3 H Plt Count (130 - 400 /CUMM) 257 MPV (7.4 - 10.4 FL) 8.6 Gran % (42.2 - 75.2 %) 82.8 H Lymphocytes % (20.5 - 51.1 %) 9.0 L Monocytes % (1.7 - 9.3 %) 6.3 Eosinophils % (0 - 5 %) 1.9 Basophils % (0.0 - 2.0 %) 0 Absolute Granulocytes (1.4 - 6.5 /CUMM) 7.3 H Absolute Lymphocytes (1.2 - 3.4 /CUMM) 0.8 L Absolute Monocytes (0.10 - 0.60 /CUMM) 0.6 Absolute Eosinophils (0.0 - 0.7 /CUMM) 0.2 Absolute Basophils (0.0 - 0.2 /CUMM) 0 A/P; 72 y/o F with pmh sig for hypertension, hyperlipidemia, moderate to severe COPD presented with flank pain, nausea/vomiting and fevers found to have UTI, Obstructive nephrolithiasis and right hydroureter and hydronephrosis s/p ureteral stent with Dr. Vargas. Last night patient got short of breath and complained of some chest tightness. As mentioned EKG and troponins were negative. Patient is requiring oxygen and still feeling short of breath. We'll obtain a chest x-ray. If chest x-ray shows any fluid overload patient will receive some Lasix. She does have mild expiratory wheeze on exam. Chest x-ray otherwise negative then we will start her on a low-dose steroid. We'll start the patient on TRC nebs. Continue inhalers. Agree with switching to oral antibiotic. Patient on heparin subcutaneous for DVT prophylaxis..
[2017-11-28 08:30] LABS: ABSOLUTE BASOPHIL COUNT 0 /CUMM (0.0-0.2); ABSOLUTE EOSINOPHIL COUNT 0.2 /CUMM (0.0-0.7); ABSOLUTE GRANULOCYTE CT 7.3 /CUMM (1.4-6.5); ABSOLUTE LYMPH COUNT 0.8 /CUMM (1.2-3.4); ABSOLUTE MONOCYTE COUNT 0.6 /CUMM (0.10-0.60); BASOPHIL % 0 % (0.0-2.0); EOSINOPHIL % 1.9 % (0-5); GRANULOCYTE % 82.8 % (42.2-75.2); HEMATOCRIT 29.4 % (37-47); MEAN CORPUSCULAR HGB 26.6 PG (27.0-31.0); MEAN CORPUSCULAR HGB CONC 33.2 G/DL (33.0-37.0); MEAN CORPUSCULAR VOLUME 80.4 FL (81.0-99.0); MEAN PLATELET VOLUME 8.6 FL (7.4-10.4); PLATELET COUNT 257 /CUMM (130-400); RBC DISTRIBUTION WIDTH 15.3 % (11.5-14.5); RED BLOOD CELL CT 3.65 /CUMM (4.20-5.40); WHITE BLOOD CELL COUNT 8.8 /CUMM (4.8-10.8)
[2017-11-28 14:05] VITALS: BP 130/52
--- NOTE | 2017-11-28 16:56 | RADIOLOGY REPORT ---
EXAMINATION: XR CHEST CLINICAL INFORMATION: Increased oxygen requirements. Presumptive diagnosis of fluid overload. COMPARISON: CT scan of the chest dated 05/15/2017. Chest x-ray dated 06/09/2015. TECHNIQUE: 2 views of the chest were obtained. FINDINGS: The cardiomediastinal silhouette is within normal limits in size. Lungs bilaterally are symmetrically hypoinflated. There is mild central vascular congestion. No overt pulmonary edema is seen. There are patchy parenchymal opacity seen in the lower lobes bilaterally, consistent with subsegmental atelectasis. Trace bilateral pleural effusions are also seen. No pneumothorax is seen. Bony structures are unremarkable. IMPRESSION: 1. Central vascular congestion and trace bilateral pleural effusions may be related to fluid overload. No overt pulmonary edema. 2. Bibasilar linear opacities, most consistent with subsegmental atelectasis.
[2017-11-28 23:11] VITALS: BP 133/56
[2017-11-29 07:18] VITALS: BP 132/58
--- NOTE | 2017-11-29 07:43 | PN- Housestaff ---
Lane Coronel 11/29/17 0743: Subjective Follow-up For: #Acute pyelonephritis Subjective: Patient reports intermittent R flank pain that radiates to abdomen accompanied by abdominal pressure upon urination. Patient reports pain subsides with pain meds. Review of Systems Constitutional: Reports: see HPI. Objective Last 24 Hrs of Vital Signs/I&O Vital Signs Date Time Temp Pulse Resp B/P B/P Pulse O2 O2 Flow FiO2 Mean Ox Delivery Rate 11/29 717 98.3 63 20 132/58 93 Nasal 1.0L Cannula 11/29 0000 Nasal 1.0L Cannula 11/28 2311 98.0 79 20 133/56 92 Nasal 1.0L Cannula 11/28 1947 94 Nasal 1.0L Cannula 11/28 1600 Nasal 1.0L Cannula 11/28 1405 98.0 63 16 130/52 96 Nasal 2.0L Cannula 11/28 0831 95 Nasal 2.0L Cannula 11/28 0824 68 111/62 11/28 0824 68 111/62 11/28 0800 95 Nasal 2.0L Cannula Intake & Output 11/29 0800 11/29 0000 11/28 1600 Intake Total 546 539 5463 Output Total 400 750 400 Balance -160 -30 700 Intake, IV 300 Intake, Oral 240 720 800 Number 0 Bowel Movements Output, Urine 400 750 400 Physical Exam General Appearance: Alert, Oriented X3, Cooperative, No Acute Distress Cardiovascular: Regular Rate, Normal S1, Normal S2 Lungs: Clear to Auscultation, Normal Air Movement Abdomen: Abdominal tenderness Current Medications: Current Medications Sig/Logan Start time Last Medication Dose Route Stop Time Status Admin Acetaminophen 650 MG ONCE ONE 11/28 1845 DC / PO 11/28 1846 1933 Acetaminophen 1,000 MG ONCE ONE 11/28 1800 CAN N/A 1 UNIT IV 11/28 1814 Acetaminophen 1,000 MG Q8 / 1400 AC / IV 0549 Albuterol Sulfate 3 ML BID 11/26 2100 AC 11/28 INH 1946 Amlodipine Besylate 10 MG DAILY 11/27 0900 AC 05/ PO 0824 Atorvastatin Calcium 20 MG 1700 11/26 1700 AC 05 PO 1734 Bisacodyl 10 MG ONCE ONE 11/28 1345 DC 11/28 IA 11/28 1346 1348 Budesonide/ 2 PUF BID 11/26 1141 AC 11/28 Formoterol Fumarate INH 1933 Ceftriaxone Sodium 1,000 MG Q24H 11/27 1100 DC 11/27 IV 1023 Ciprofloxacin 500 MG BID 11/28 1023 AC 11/28 PO 12/02 1022 1933 Docusate Sodium 100 MG DAILY NEEDED PRN 11/27 1115 AC 11/28 PO 0824 Furosemide 20 MG ONCE ONE 11/28 1515 DC IV 11/28 1516 Heparin Sodium 5,000 UNIT Q8 11/26 1400 AC 11/29 (Porcine) SC 0559 Hydrocodone Bitart/ 1 TAB Q6P PRN 11/26 1130 AC 11/28 Acetaminophen PO 1344 Lactated Ringer's 1,000 ML Q10H 11/27 0700 DC 11/28 IV 0450 Metoprolol Succinate 12.5 MG DAILY 11/27 0900 AC 11/28 PO 0824 Omeprazole 20 MG DAILY AC 11/28 2130 AC 11/29 PO 0559 Patient Medication 1 ED ONE ONE 11/28 1815 DC 11/28 Teaching ED 11/28 1816 1934 Phenazopyridine HCl 100 MG PC 11/27 0900 AC 11/28 PO 1734 Senna 187 MG AT BEDTIME 11/27 2100 AC 11/28 PO 1933 Tiotropium [place] 1 PUF DAILY 11/26 1141 AC 11/28 INH 0823 Last 24 Hrs of Lab/Reji Results Last 24 Hrs of Labs/Mics: Laboratory Tests 11/29/17 0734: CBC w Diff Pending, WBC Pending, RBC Pending, Hgb Pending, Hct Pending, MCV Pending, MCH Pending, MCHC Pending, RDW Pending, Plt Count Pending, MPV Pending Assessment/Plan Assessment: Ms. Sweeney is a 72-year-old woman with history of hypertension, hyperlipidemia, moderate to severe COPD presented with flank pain, nausea/ vomiting and fevers. Problem list: #Acute pyelonephritis secondary to obstructing right ureteral calculus status post stent placement #Anemia - may be dilutional due to fluid resuscitation Plan: TRC/nebs PRN, goal O2 > 90% Check ambulatory sats Monitor H&H Continue Ciprofloxacin 500 mg BID for 14 days We will consider resuming antihypertensives if BP allows now that renal function is at baseline Appreciate Urology recommendations, patient will follow up as outpatient Pain: Hydrocodone, Acetaminophen Diet: Regular DVT ppx: sc Heparin Code: DNR/I Dispo: Home with Uro follow up Problem List: 1. Pyelonephritis Pain Ratin Pain Location: R flank Pain Goal: Pain 4 or less Pain Plan: Hydrocodone Tomorrow's Labs & Rationales: none Shaheen MIDDLETONDeborah 11/29/17 1216: Attending MD Review Statement Attending Statement Attending MD Statement: examined this patient, discuss w/resident/PA/STERILIZATION SPECIALIST, agreed w/resident/PA/STERILIZATION SPECIALIST, reviewed EMR data (avail), discussed with nursing, discussed with case mgmt, reviewed images, amended to note Attending Assessment/Plan: Patient seen and examined, says that breathing is better than yesterday. Still requiring oxygen. Chest x-ray showed vascular congestion yesterday likely secondary to fluid overload. Patient did receive IV Lasix yesterday. We'll give another dose of oral Lasix and resume the hydrochlorothiazide for home medications. Patient otherwise has been switched to oral abx. She walked with nursing and she desatted to 88% on room air. She does have home oxygen which she can use during the daytime. Baseline oxygen use is at night. We will arrange home visiting nurses to check her ambulatory O2 sat at home and then wean her off of oxygen. Patient does follow up with Dr. Heart as an outpatient for her COPD. She should also follow with Dr. Vargas as an outpatient. She is otherwise medically stable for discharge home today on oral Abx.
--- NOTE | 2017-11-29 08:06 | Patient Discharge Instructions ---
Discharge Instructions General Discharge Information You were seen/treated for: Pyleonephritis You had these procedures: cystoscopy: right stent insertion. Fluoroscopy Special Instructions: Follow up with the Urologist within 1 week of discharge Follow up with your PCP within 1-2 weeks of discharge Follow up with Dr. Heart upon discharge Diet Continue normal diet: Yes Activity Other activity limits: As tolerated Acute Coronary Syndrome Inclusion Criteria At DC or during hospital stay patient has or had the following: ACS DIAGNOSIS No Discharge Core Measures Meds if any: Prescribed or Continued at Discharge Meds if any: NOT Prescribed or Continued at Discharge Congestive Heart Failure Inclusion Criteria At DC or during hospital stay patient has or had the following: CHF DIAGNOSIS No Discharge Core Measures Meds if any: Prescribed or Continued at Discharge Meds if any: NOT Prescribed or Continued at Discharge Cerebrovascular accident Inclusion Criteria At DC or during hospital stay patient has or had the following: CVA/TIA Diagnosis No Discharge Core Measures Meds if any: Prescribed or Continued at Discharge Meds if any: NOT Prescribed or Continued at Discharge Venous thromboembolism Inclusion Criteria VTE Diagnosis No VTE Type NONE VTE Confirmed by (Test) NONE Discharge Core Measures - Per Current guidelines, there needs to be overlap - treatment for the first 5 days of Warfarin therapy. - If discharged on Warfarin prior to 5 days of - overlap therapy, the patient will need to be - assessed for post discharge needs including - *Post discharge parental anticoagulation - *Warfarin and/or parental anticoagulation education - *Follow up date to check INR post discharge At least 5 days overlap therapy as Inpatient No Meds if any: Prescribed or Continued at Discharge Note: Overlap Therapy is Warfarin and Anticoagulant Meds if any: NOT Prescribed or Continued at Discharge
[2017-11-29 08:12] VITALS: BP 130/64
[2017-11-29] MEDS ORDERED: HYDROCODON-ACE1 EAC2 PO ×4 (08:38→16:21)
[2017-11-29] MEDS ORDERED: CIPRO500 M1 PO ×2 (08:38→10:59)
[2017-11-29 08:43] LABS: ABSOLUTE BASOPHIL COUNT 0 /CUMM (0.0-0.2); ABSOLUTE EOSINOPHIL COUNT 0.2 /CUMM (0.0-0.7); ABSOLUTE GRANULOCYTE CT 5.5 /CUMM (1.4-6.5); ABSOLUTE LYMPH COUNT 0.8 /CUMM (1.2-3.4); ABSOLUTE MONOCYTE COUNT 0.5 /CUMM (0.10-0.60); BASOPHIL % 0 % (0.0-2.0); EOSINOPHIL % 2.8 % (0-5); GRANULOCYTE % 78.7 % (42.2-75.2); HEMATOCRIT 30.9 % (37-47); MEAN CORPUSCULAR HGB 26.5 PG (27.0-31.0); MEAN CORPUSCULAR HGB CONC 32.8 G/DL (33.0-37.0); MEAN CORPUSCULAR VOLUME 80.8 FL (81.0-99.0); MEAN PLATELET VOLUME 8.5 FL (7.4-10.4); PLATELET COUNT 321 /CUMM (130-400); RBC DISTRIBUTION WIDTH 15.8 % (11.5-14.5); RED BLOOD CELL CT 3.83 /CUMM (4.20-5.40)
== END 2017-11-29 13:20 | DRG 690 ==
LOC: ERH 06:27 → 2NB 10:36 → ERHI 10:36 → ENRESERV 11:43 → 2NB 11:53 → ENTRNSPT 12:31 → EDTRNSPT 12:33 → EDTRNSPTSTS 12:33 → 2NB 12:46 → CMPTRNSPT 13:11 → ENTRNSPT 15:49 → EDTRNSPTSTS 15:52 → CMPTRNSPT 16:16 → 2NB 11-27 07:52 → ENPENDDIS 11-29 11:28 → ENTRNSPT 11-29 13:06 → EDTRNSPT 11-29 13:19 → EDTRNSPTSTS 11-29 13:19 → 2NB 11-29 13:20 → CMPTRNSPT 11-29 13:30
PROVIDERS: Internal Medicine; Internal Medicine Hematology & Oncology; Pediatrics; Student in an Organized Health Care Education/Training Program
PROC: 0T768DZ Dilation of Right Ureter with Intraluminal Device, Via Natural or Artificial Opening Endoscopic (ICD-10-PCS; principal; 2017-11-26)
PROC: 0T938ZX Drainage of Right Kidney Pelvis, Via Natural or Artificial Opening Endoscopic, Diagnostic (ICD-10-PCS; 2017-11-26)
DX: N10 Acute pyelonephritis (principal); N17.9 Acute kidney failure, unspecified; J44.9 Chronic obstructive pulmonary disease, unspecified; N13.2 Hydronephrosis with renal and ureteral calculous obstruction; I10 Essential (primary) hypertension; E78.5 Hyperlipidemia, unspecified; Z90.49 Acquired absence of other specified parts of digestive tract; Z98.51 Tubal ligation status; M85.80 Other specified disorders of bone density and structure, unspecified site; Z66 Do not resuscitate
CPT/HCPCS: 2NBP; 36415; 36592; 71046; 74018; 74176; 81001; 82436; 87040; 87086; 93005; 93010; 96361; 96374; 96375; 99291; C2617; J0131; J0696; J1644; J1885; J1940; J2405; J3490; J7120